=== PATIENT | male | born 1955 | race Caucasian/White ===

== ENCOUNTER → 2017-09-14 | Outpatient (CLI) | payer BC ==
[~2017-09-14] MED LIST: ALDACTONE 25MG25 MG PO; LISINOPRIL/HCTZ1 TA3 PO; SIMVASTATIN20 MG; TOPROL XL 100M100 MG
--- NOTE | 2017-09-14 15:34 | RADIOLOGY REPORT PS360 ---
EXAM: CT LUNG LOW DOSE WO CONTRAST COMPARISON: None HISTORY: 7 year old male with history of tobacco abuse ORDERING PHYSICIAN: Stalin Butts MD PATIENT AGE: 62 years TECHNIQUE: The exam was performed on a GE Light Speed [address] scanner using 2.95 mGy CTDI. A low dose helical CT CHEST was performed on a multi-detector scanner The LDCT was performed in a facility that meets the criteria for the screening program. Data regarding this exam was submitted to [employer] which is an approved registry. The order for this exam indicates that it came as a result of a lung cancer screening counseling shard decision-making visit that included all the elements required of such a visit including smoking cessation. The radiologist interpreting this exam meets the [facility] criteria for the LDCT lung cancer screening program. The exam is reported using the Lung-RADS classification scale and reported to the ACR registry. NOTE: This study was performed for the specific purposes of lung cancer screening and is not an alternative to diagnostic chest CT. RADIATION DOSE: CTDI vol(CT dose Index-volume) = 2.95mG DLP (Dose Length Product) = 106.04 mGcm FINDINGS: There is severe centrilobular and paraseptal emphysematous changes. 5 mm noncalcified nodule right upper lobe anteriorly. 3 mm noncalcified nodule right upper lobe anteriorly 2 mm noncalcified nodule right upper lobe anteriorly There are mild scattered fibrotic changes. There has been prior median sternotomy with CABG A 12 mm lymph node is present in the precardiac region. 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 Lung RADS Category: 2, benign findings 2. Other findings: Centrilobular emphysematous change. Coronary artery disease. Thoracic kyphosis with ankylosis RECOMMENDATIONS: 12 monthd LDCT follow-up
== END ==
LOC: RAD 12:45
DX: Z87.891 Personal history of nicotine dependence (principal); Z12.2 Encounter for screening for malignant neoplasm of respiratory organs
CPT/HCPCS: G0297